=== PATIENT | male | born 1960 | race Caucasian/White ===

== ENCOUNTER 2018-10-02 13:11 | Emergency (ER) | payer SELFPAY ==
[2018-10-02 13:17] VITALS: BMI 33.7
[2018-10-02] MEDS ORDERED: morphine CARPU-JECT 2 MG/1 ML DISP.SYRIN IVPUSH ONE (13:49)
[2018-10-02] MEDS ORDERED: MORPHINE SULFATE 2 MG/ML VIAL ONE (14:31)
[2018-10-02 14:45] LABS: BASO % 0.5 % (0-2.0); EOS % 0.4 % (0-4.5); HEMATOCRIT 44.8 % (35.4-49); HEMOGLOBIN 15.8 GM/dL (11.7-16.9); LYMPH % 8.2 % (8-40); MCH 33.2 pg (25.7-33.7); MCHC 35.2 g/dl (32.0-35.9); MEAN CELL VOLUME 94.2 fl (80-96); MEAN PLT VOLUME 8.7 fl (7.5-11.1); MONO % 5.3 % (3.8-10.2); NEUT % 85.6 % (42.8-82.8); PLATELET COUNT 167 K/MM3 (134-434); RBC 4.75 M/mm3 (4.00-5.60); WHITE BLOOD COUNT 9.3 K/mm3 (4.0-10.0)
[2018-10-02 15:57] LABS: ALBUMIN 4.1 g/dl (3.4-5.0); ALK PHOS 91 U/L (45-117); ANION GAP 5 MMOL/L (8-16); BILIRUBIN,TOTAL 0.8 mg/dL (0.2-1); BLOOD UREA NITROGEN 10 mg/dL (7-18); CALCIUM 8.6 mg/dL (8.5-10.1); CHLORIDE 99 mmol/L (98-107); CO2 30 mmol/L (21-32); CREATININE 0.8 mg/dL (0.55-1.3); GLUCOSE,RANDOM 116 mg/dL (74-106); POTASSIUM 3.9 mmol/L (3.5-5.1); SGOT/AST 17 U/L (15-37); SGPT/ALT 26 U/L (13-61); SODIUM 133 mmol/L (136-145); TOT PROT 8.4 g/dl (6.4-8.2)
[2018-10-02] MEDS ORDERED: SODIUM CHLORIDE 1,000 ML IV STA (16:18)
[2018-10-02 17:53] VITALS: BP 156/80; PULSE 98; TEMP 98.1
--- NOTE | 2018-10-02 18:08 | PDOC ---
History of Present Illness - General Chief Complaint: Pain Stated Complaint: ABD PAIN Time Seen by Provider: 10/02/18 13:40 History Source: Patient Exam Limitations: No Limitations - History of Present Illness Travel History: No Initial Comments: 10/02/18 18:19 58-year-old male presents to ED with complaints of umbilical pain at his hernia site worsening over the past 3 weeks. 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 Patient denies change in bowel pattern, fever, nausea, or radiation of pain. Patient denies history of abdominal surgery Timing/Duration: reports: getting worse Quality: reports: moderate, burning Activities at Onset: reports: none Aggravating Factors: improves with: Movement Alleviating Factors: improves with: Rest Past History - Travel Traveled outside of the country in the last 30 days: No Close contact w/someone who was outside of country & ill: No - Past Medical History Allergies/Adverse Reactions: Allergies Allergy/AdvReac Type Severity Reaction Status Date / Time No Known Allergies Allergy Verified 10/02/18 13:17 Home Medications: Ambulatory Orders Oxycodone HCl/Acetaminophen [Percocet 5-325 mg Tablet] 1 - 2 tab PO Q6H PRN #12 tab MDD 4 10/02/18 COPD: No - Suicide/Smoking/Psychosocial Hx Smoking History: Never smoked Substance Use Type: Alcohol Patient Lives Alone: No Lives with/in: spouse/SO Review of Systems - Review of Systems Able to Perform ROS?: No Constitutional: No: Symptoms Reported HEENTM: No: Symptoms Reported Respiratory: No: Symptoms reported Cardiac (ROS): No: Symptoms Reported ABD/GI: Yes: Other : No: Symptoms Reported Musculoskeletal: No: Symptoms Reported Integumentary: Yes: Lumps (umbilical) Neurological: No: Symptoms reported Endocrine: No: Symptoms Reported *Physical Exam - Vital Signs Last Vital Signs Temp Pulse Resp BP Pulse Ox 98.1 F 98 H 20 156/80 95 10/02/18 17:52 10/02/18 17:52 10/02/18 17:52 10/02/18 17:52 10/02/18 17:52 - Physical Exam General Appearance: Yes: Nourished, Appropriately Dressed. No: Apparent Distress HEENT: negative: Pale Conjunctivae Neck: positive: Normal Thyroid, Supple Respiratory/Chest: positive: Lungs Clear, Normal Breath Sounds. negative: Respiratory Distress, Accessory Muscle Use Cardiovascular: positive: Regular Rhythm, Tachycardia (100). negative: Murmur Gastrointestinal/Abdominal: positive: Normal Bowel Sounds, Soft, Hernia (4 cm nonreducible umbilical hernia. Area slightly hyper pigmented. Surrounding skin intact. No increased warmth to the area). negative: Distended Musculoskeletal: negative: CVA Tenderness Extremity: positive: Normal Capillary Refill Integumentary: positive: Warm, Moist Neurologic: positive: Motor Strength 5/5 (ambulatory) Moderate Sedation - Procedure Monitoring Vital Signs: Procedure Monitoring Vital Signs Temperature 98.1 F 10/02/18 17:52 Pulse Rate 98 H 10/02/18 17:52 Respiratory Rate 20 10/02/18 17:52 Blood Pressure 156/80 10/02/18 17:52 O2 Sat by Pulse Oximetry (%) 95 10/02/18 17:52 ED Treatment Course - LABORATORY CBC & Chemistry Diagram: 10/02/18 14:34 10/02/18 15:19 - ADDITIONAL ORDERS Additional order review: Laboratory Results 10/02/18 10/02/18 15:19 14:34 Sodium 133 L Cancelled Potassium 3.9 Cancelled Chloride 99 Cancelled Carbon Dioxide 30 Cancelled Anion Gap 5 L Cancelled BUN 10 Cancelled Creatinine 0.8 Cancelled Creat Clearance w eGFR > 60 Cancelled Random Glucose 116 H Cancelled Calcium 8.6 Cancelled Total Bilirubin 0.8 Cancelled AST 17 Cancelled ALT 26 Cancelled Alkaline Phosphatase 91 Cancelled Total Protein 8.4 H Cancelled Albumin 4.1 Cancelled 10/02/18 14:34 RBC 4.75 MCV 94.2 MCHC 35.2 RDW 13.0 MPV 8.7 Neutrophils % 85.6 H Lymphocytes % 8.2 Monocytes % 5.3 Eosinophils % 0.4 Basophils % 0.5 - RADIOLOGY Radiology Studies Ordered: Category Date Time Status ABDOMEN & PELVIS CT WITH CONTR [CT] Stat CT Scan 10/02/18 13:48 Taken - Medications Given in the ED: ED Medications Discontinued Medications Generic Name Dose Route Start Last Admin Trade Name Freq PRN Reason Stop Dose Admin Sodium Chloride 1,000 mls @ 1,000 mls/hr 10/02/18 16:18 02/23/19 17:47 Normal Saline - IV 10/02/18 17:17 1,000 mls/hr ASDIR STA Administration Morphine Sulfate 2 mg 10/02/18 13:49 10/02/18 13:30 Morphine Injection - IVPUSH 10/02/18 13:50 2 mg ONCE ONE Administration Medical Decision Making - Medical Decision Making 10/02/18 14:32 Chief complaint: Umbilical hernia discomfort worsening over the past few months. Patient has had no follow-up. 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 Patient with non-reducible umbilical hernia after gentle pressure while laying supine on stretcher. Plan: Morphine IV reattempt to reduce, CBC, comp and abdominal CT with contrast to rule out incarceration or obstruction 10/02/18 15:34 Unable to reduce hernia after given morphine. Patient pending CT. 10/02/18 17:34 Laboratory Tests 10/02/18 10/02/18 14:34 15:19 WBC 9.3 Hgb 15.8 Hct 44.8 MCV 94.2 Neutrophils % 85.6 H Sodium 133 L Random Glucose [address] shows no incarceration of umbilical hernia. Patient will be given a 6 inch an elastic bandage along with gauze to apply pressure to umbilical area. Patient also given a few tablets of Percocet with a surgical referral. *DC/Admit/Observation/Transfer Diagnosis at time of Disposition: Umbilical hernia - Discharge Dispostion Disposition: HOME Condition at time of disposition: Improved - Prescriptions Prescriptions: Oxycodone HCl/Acetaminophen [Percocet 5-325 mg Tablet] 1 - 2 tab PO Q6H PRN #12 tab MDD 4 PRN Reason: Pain - Referrals Referrals: Romulo Arzate MD [Staff Physician] - - Patient Instructions Printed Discharge Instructions: Abdominal Hernia Additional Instructions: Use binder to stomach during the day and remove at night. Please call the surgeon as discussed. Please take medication as needed for discomfort. Please eat a well-balanced diet throughout the day. Print Language: PARAGUAYAN - Post Discharge Activity
== END 2018-10-02 18:36 | disposition home or self-care (01) ==
LOC: JER 13:11
PROC: 3E0337Z Introduction of Electrolytic and Water Balance Substance into Peripheral Vein, Percutaneous Approach (ICD-10-PCS; principal; 2018-10-02)
PROC: 3E033NZ Introduction of Analgesics, Hypnotics, Sedatives into Peripheral Vein, Percutaneous Approach (ICD-10-PCS; 2018-10-02)
DX: K42.9 Umbilical hernia without obstruction or gangrene (principal)
CPT/HCPCS: 36415; 74177-TC; 80053; 85025; 99283-25; J7030

== ENCOUNTER 2018-10-05 13:41 | Emergency (ER) | payer SELFPAY ==
[2018-10-05 13:57] VITALS: BP 164/86; PULSE 58; TEMP 98; BMI 29.2
--- NOTE | 2018-10-05 14:59 | PDOC ---
Rapid Medical Evaluation Chief Complaint: Pain, Acute Medical Evaluation: Allergies Allergy/AdvReac Type Severity Reaction Status Date / Time No Known Allergies Allergy Verified 10/02/18 13:17 Vital Signs Temp Pulse Resp BP Pulse Ox 98.0 F 58 L 18 164/86 98 10/05/18 13:50 10/05/18 13:50 10/05/18 13:50 10/05/18 13:50 10/05/18 13:50 I have performed a brief in-person evaluation of this patient. The patient presents with a chief complaint of: Abdominal pain x 3 days; denies fever, sob, cp, n/v/d, constipation Pertinent physical exam findings: +Umbilicial hernia noted (able to reduce in triage) I have ordered the following: Labs The patient will proceed to the ED for further evaluation. 10/05/18 14:53 Discharge Disposition - Discharge Dispostion Condition at time of disposition: Stable - Referrals - Patient Instructions - Post Discharge Activity
[2018-10-05 15:53] LABS: BASO % 0.6 % (0-2.0); EOS % 2.6 % (0-4.5); HEMATOCRIT 44.1 % (35.4-49); HEMOGLOBIN 15.6 GM/dL (11.7-16.9); LYMPH % 44.7 % (8-40); MCH 33.5 pg (25.7-33.7); MCHC 35.3 g/dl (32.0-35.9); MEAN CELL VOLUME 95.1 fl (80-96); NEUT % 40.1 % (42.8-82.8); PLATELET COUNT 132 K/MM3 (134-434); RBC 4.64 M/mm3 (4.00-5.60); WHITE BLOOD COUNT 3.4 K/mm3 (4.0-10.0)
[2018-10-05 16:14] LABS: INR 0.93 (0.83-1.09)
[2018-10-05] MEDS ORDERED: morphine CARPU-JECT 2 MG/1 ML DISP.SYRIN IVPUSH ONE (16:15)
[2018-10-05 16:16] LABS: ACTIVATED PTT 33.8 SECONDS (25.2-36.5)
[2018-10-05 16:25] LABS: ALK PHOS 87 U/L (45-117); ANION GAP 7 MMOL/L (8-16); BILIRUBIN,TOTAL 0.5 mg/dL (0.2-1); BLOOD UREA NITROGEN 13 mg/dL (7-18); CALCIUM 8.7 mg/dL (8.5-10.1); CHLORIDE 99 mmol/L (98-107); CO2 32 mmol/L (21-32); CREATININE 0.8 mg/dL (0.55-1.3); GLUCOSE,RANDOM 115 mg/dL (74-106); POTASSIUM 3.8 mmol/L (3.5-5.1); SGOT/AST 46 U/L (15-37); SGPT/ALT 34 U/L (13-61); SODIUM 137 mmol/L (136-145); TOT PROT 8.4 g/dl (6.4-8.2)
[2018-10-05] MEDS ORDERED: morphine SULFATE 4 MG/ML VIAL ONE (17:10)
--- NOTE | 2018-10-05 17:43 | PDOC ---
History of Present Illness - General Chief Complaint: Pain, Acute Stated Complaint: ABD PAIN Time Seen by Provider: 10/05/18 14:53 History Source: Patient Exam Limitations: No Limitations - History of Present Illness Travel History: No Initial Comments: 10/05/18 17:45 58-year-old male presents with continual umbilical pain which he feels has gotten larger but is relieved with the Percocet he was prescribed with the other day. Patient denies nausea, fever, chills change in bowel pattern, radiation of pain, or urinary complaints. Patient states was told he had a hernia on CAT scan that was done here in the ER and was given a referral to a surgeon. Timing/Duration: reports: intermittent Quality: reports: mild, moderate, burning Abdominal Pain Onset Location: reports: periumbilical Pain Radiation: reports: no radiation Activities at Onset: reports: none Aggravating Factors: improves with: Movement Alleviating Factors: improves with: Rest Past History - Travel Traveled outside of the country in the last 30 days: No Close contact w/someone who was outside of country & ill: No - Past Medical History Allergies/Adverse Reactions: Allergies Allergy/AdvReac Type Severity Reaction Status Date / Time No Known Allergies Allergy Verified 10/05/18 18:48 Home Medications: Ambulatory Orders Oxycodone HCl/Acetaminophen [Percocet 5-325 mg Tablet] 1 - 2 tab PO Q6H PRN #12 tab MDD 4 10/02/18 COPD: No Dialysis: No Liver Disease: No - Surgical History Appendectomy: No Neurologic Surgery: No - Immunization History Immunization Up to Date: No - Suicide/Smoking/Psychosocial Hx Smoking History: Never smoked Have you smoked in the past 12 months: No Information on smoking cessation initiated: No Hx Alcohol Use: No Drug/Substance Use Hx: No Substance Use Type: Alcohol Patient Lives Alone: No Lives with/in: spouse/SO Review of Systems - Review of Systems Able to Perform ROS?: Yes Constitutional: No: Symptoms Reported HEENTM: No: Symptoms Reported Respiratory: No: Symptoms reported Cardiac (ROS): No: Symptoms Reported ABD/GI: Yes: See HPI : No: Symptoms Reported Musculoskeletal: No: Symptoms Reported Integumentary: Yes: Lumps Neurological: No: Symptoms reported *Physical Exam - Vital Signs Last Vital Signs Temp Pulse Resp BP Pulse Ox 98.0 F 58 L 18 164/86 98 10/05/18 13:50 10/05/18 13:50 10/05/18 13:50 10/05/18 13:50 10/05/18 13:50 - Physical Exam General Appearance: Yes: Nourished, Appropriately Dressed. No: Apparent Distress Respiratory/Chest: positive: Lungs Clear, Normal Breath Sounds. negative: Respiratory Distress, Accessory Muscle Use Cardiovascular: positive: Regular Rhythm, Bradycardia. negative: Murmur Gastrointestinal/Abdominal: positive: Soft, Tenderness (at 2 x 2 centimeter umbilical hernia region. surrounding skin intact), Hernia (reducible umbilical hernia while in supine position after applying ice and morphine administration) Musculoskeletal: negative: CVA Tenderness Extremity: positive: Normal Capillary Refill. negative: Pedal Edema Integumentary: positive: Normal Color, Warm, Moist Neurologic: positive: Motor Strength 5/5 (ambulatory) Moderate Sedation - Procedure Monitoring Vital Signs: Procedure Monitoring Vital Signs Temperature 98.0 F 10/05/18 13:50 Pulse Rate 58 L 10/05/18 13:50 Respiratory Rate 18 10/05/18 13:50 Blood Pressure 164/86 10/05/18 13:50 O2 Sat by Pulse Oximetry (%) 98 10/05/18 13:50 ED Treatment Course - LABORATORY CBC & Chemistry Diagram: 10/05/18 15:17 10/05/18 15:17 - ADDITIONAL ORDERS Additional order review: Laboratory Results 10/05/18 10/05/18 10/05/18 15:17 15:17 15:17 PT with INR 11.00 INR 0.93 PTT (Actin FS) 33.8 Sodium 137 Potassium 3.8 Chloride 99 Carbon Dioxide 32 Anion Gap 7 L BUN 13 Creatinine 0.8 Creat Clearance w eGFR > 60 Random Glucose 115 H Lactic Acid Calcium 8.7 Total Bilirubin 0.5 AST 46 H ALT 34 Alkaline Phosphatase 87 Total Protein 8.4 H Albumin 4.0 Blood Type O POSITIVE Antibody Screen Negative 10/05/18 15:16 PT with INR INR PTT (Actin FS) Sodium Potassium Chloride Carbon Dioxide Anion Gap BUN Creatinine Creat Clearance w eGFR Random Glucose Lactic Acid 1.2 Calcium Total Bilirubin AST ALT Alkaline Phosphatase Total Protein Albumin Blood Type Antibody Screen 10/05/18 15:17 RBC 4.64 MCV 95.1 MCHC 35.3 RDW 13.0 MPV 9.0 Neutrophils % 40.1 L D Lymphocytes % 44.7 H D Monocytes % 12.0 H D Eosinophils % 2.6 D Basophils % 0.6 - Medications Given in the ED: ED Medications Discontinued Medications Generic Name Dose Route Start Last Admin Trade Name David PRN Reason Stop Dose Admin Morphine Sulfate 4 mg 10/05/18 16:15 10/05/18 17:13 Morphine Injection - IVPUSH 10/05/18 16:16 4 mg ONCE ONE Administration Medical Decision Making - Medical Decision Making 10/05/18 17:49 Periumbilical tenderness and stating it appears larger since last ED visit. Patient with reducible umbilical hernia but secondary to symptoms he decided to come to the ER today. Patient denies worsening symptoms and has been taking Percocet with good effect patient also states was using his elastic band but now cannot find it. Exam. Patient with reducible hernia after applying massage and receiving morphine. Plan: To be evaluated by surgery labs pending 10/05/18 18:[address] egan who recommends primary care referral for medical clearance and to be seen by a surgeon who will accept patient without insurance since this is not an emergent case and is at this time elective. 10/05/18 19:11 Laboratory Tests 10/05/18 10/05/18 10/05/18 15:16 15:17 15:17 WBC 3.4 L Hgb 15.6 Hct 44.1 Plt Count 132 L D MPV 9.0 Absolute Neuts (auto) 1.4 L Neutrophils % 40.1 L D Sodium 137 Potassium 3.8 Chloride 99 Carbon Dioxide 32 Anion Gap 7 L BUN 13 Creatinine 0.8 Random Glucose 115 H Lactic Acid 1.2 Calcium 8.7 Total Bilirubin 0.5 AST 46 H ALT 34 Alkaline Phosphatase 87 Total Protein 8.4 H Albumin 4.0 *DC/Admit/Observation/Transfer Diagnosis at time of Disposition: Umbilical hernia, Alcohol abuse - Discharge Dispostion Disposition: HOME Condition at time of disposition: Good - Referrals Referrals: Romulo Arzate MD [Staff Physician] - Winston English MD [Staff Physician] - - Patient Instructions Printed Discharge Instructions: Abdominal Hernia Additional Instructions: Please follow up with referred surgeon and primary care physician. Please apply pressure to area when coughing or getting up. You may also reduce the area by laying flat applying gentle pressure with massage. Print Language: UPPER SORBIAN - Post Discharge Activity
--- NOTE | 2018-10-05 18:48 | CONSULT ---
Consult Consult Specialty:: General Surgery Referred by:: Primitivo Fletcher Reason for Consultation:: umbilical hernia - incarcerated? - History of Present Illness Chief Complaint: umbilical pain and bulging History of Present Illness: 58yo M, daily drinker, with no PMH or PSH otherwise, presented for second time in 3 days with umbilical pain and bulging, now worse than 3 days ago. Hernia diagnosed last visit, CT done showing fat content only. Pt reports cough since Thursday, and that it is worse with coughing. Denies f/c, n/v, d/c, urinary symptoms, CP, SOB, LOPEZ/dizziness. No home meds except the percocet he was Rx Thursday. 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 Denies h/o tremors or blackouts. Surgery was asked to evaluate. No wbc, normal INR, LFTs, no ascites on CT or abnormal liver appearance. He is seen and examined in ER. H&P facilitated by Occitan translation with nursing and AUDIO ENGINEER staff. - History Source History Provided By: Patient Limitations to Obtaining History: Language Barrier (Occitan - facilitated by Tod Mantilla and Primitivo Fletcher) - Past Medical History Psych: Yes: Addictions (EtOH - 6-8 beers/day when not working) Musculoskeletal: Yes: Other (umbilical hernia) - Past Surgical History Past Surgical History: Yes: None - Alcohol/Substance Use Hx Alcohol Use: Yes (6-8 beers/day when not working) History of Substance Use: reports: None - Smoking History Smoking history: Never smoked Have you smoked in the past 12 months: No - Social History ADL: Independent Occupation: intermittent/cleaning supervisor construction Home Medications - Allergies Allergies/Adverse Reactions: Allergies Allergy/AdvReac Type Severity Reaction Status Date / Time No Known Allergies Allergy Verified 10/02/18 13:17 - Home Medications Home Medications: Ambulatory Orders Oxycodone HCl/Acetaminophen [Percocet 5-325 mg Tablet] 1 - 2 tab PO Q6H PRN #12 tab MDD 4 10/02/18 Family Disease History - Family Disease History Family History: Unremarkable (noncontributory) Review of Systems - Review of Systems Constitutional: denies: Chills, Fever Eyes: denies: Blurred Vision, Recent Change in Vision HENT: denies: Difficult Swallowing, Throat Pain Neck: denies: Swollen Glands, Tenderness Cardiovascular: denies: Chest Pain, Palpitations Respiratory: reports: Cough (since Thursday). denies: SOB Gastrointestinal: reports: Abdominal Pain (with hpi). denies: Constipation, Diarrhea, Nausea, Vomiting Genitourinary: denies: Burning, Dysuria Musculoskeletal: reports: Back Pain (related to working). denies: Joint Pain, Muscle Pain Integumentary: reports: Lump (at belly button (hpi)). denies: Change in Color, Rash Neurological: denies: Dizziness, Headache Physical Exam Vital Signs: Vital Signs Temperature 98.0 F 10/05/18 13:50 Pulse Rate 58 L 10/05/18 13:50 Respiratory Rate 18 10/05/18 13:50 Blood Pressure 164/86 10/05/18 13:50 O2 Sat by Pulse Oximetry (%) 98 10/05/18 13:50 Constitutional: Yes: Well Nourished, No Distress, Calm Eyes: Yes: Conjunctiva Clear, EOM Intact HENT: Yes: Atraumatic, Normocephalic Neck: Yes: Supple, Trachea Midline Cardiovascular: Yes: Regular Rate and Rhythm Respiratory: Yes: Regular, Cough (intermittent, does not seem productive), Wheezes (slight on left, more expiratory than inspiratory, does not clear completely with cough) Gastrointestinal: Yes: Normal Bowel Sounds, Soft, Hernia (umbilical, reducible with <1cm defect palpable once reduced), Tenderness (over hernia and referred from all other quadrants, mildly). No: Distention, Tenderness, Rebound ...Rectal Exam: Yes: Deferred Renal/: Yes: CVA Tenderness - Left (mild). No: CVA Tenderness - Right Musculoskeletal: Yes: Back Pain (mild - per pt, related to work). No: Joint Swelling Extremities: No: Cool, Cyanosis Edema: No Peripheral Pulses WNL: Yes Integumentary: No: Jaundice, Rash Neurological: Yes: Alert, Oriented. No: Tremors Psychiatric: Yes: Alert, Oriented Labs: CBC, BMP 10/05/18 15:17 10/05/18 15:17 CMP Sodium 137 mmol/L (136-145) 10/05/18 15:17 Potassium 3.8 mmol/L (3.5-5.1) 10/05/18 15:17 Chloride 99 mmol/L (98-107) 10/05/18 15:17 Carbon Dioxide 32 mmol/L (21-32) 10/05/18 15:17 Anion Gap 7 MMOL/L (8-16) L 10/05/18 15:17 BUN 13 mg/dL (7-18) 10/05/18 15:17 Creatinine 0.8 mg/dL (0.55-1.3) 10/05/18 15:17 Creat Clearance w eGFR > 60 (>60) 10/05/18 15:17 Random Glucose 115 mg/dL (74-106) H 10/05/18 15:17 Lactic Acid 1.2 mmol/L (0.4-2.0) 10/05/18 15:16 Calcium 8.7 mg/dL (8.5-10.1) 10/05/18 15:17 Total Bilirubin 0.5 mg/dL (0.2-1) 10/05/18 15:17 AST 46 U/L (15-37) H 10/05/18 15:17 ALT 34 U/L (13-61) 10/05/18 15:17 Alkaline Phosphatase 87 U/L (45-117) 10/05/18 15:17 Total Protein 8.4 g/dl (6.4-8.2) H 10/05/18 15:17 Albumin 4.0 g/dl (3.4-5.0) 10/05/18 15:17 INR, PTT INR 0.93 (0.83-1.09) 10/05/18 15:17 Imaging - Results Cat Scan: Report Reviewed, Image Reviewed (images from 10/02 reviewed - fat- containing umbilical hernia, ~1cm defect as measured, no fluid, no bowel content , no other acute findings) Problem List - Problems (1) Umbilical hernia without obstruction and without gangrene Assessment/Plan: Pt with reducible fat-containing umbilical hernia No incarceration, no bowel content, symptomatic but no urgent/emergent indication for repair Also with apparent URI with cough and wheezing for last few days Hernia prominence and pain likely related to increase in coughing Pt instructed on how to splint with coughing by holding the hernia site with fingers/hand for support Pt will need to resolve URI/coughing/wheezing prior to consideration of elective repair Discussed R/B/A of laparoscopic possible open repair with assistance of Tod Mantilla in Occ[place] Pt understands he would be out of work for at least 4-6 weeks after a repair procedure Pt also has no primary physician - ER to refer to PMD F/U with surgery for elective repair as long as hernia is reducible, goes down with lying flat, massage and/or relaxation - may be done electively Code(s): K42.9 - UMBILICAL HERNIA WITHOUT OBSTRUCTION OR GANGRENE (2) Umbilical pain Code(s): R10.33 - PERIUMBILICAL PAIN (3) Alcohol abuse Assessment/Plan: pt advised to reduce or quit EtOH consumption, especially prior to elective surgery also advised not to drink with narcotic pain medication Code(s): F10.10 - ALCOHOL ABUSE, UNCOMPLICATED (4) URI with cough and congestion Assessment/Plan: see above Code(s): J06.9 - ACUTE UPPER RESPIRATORY INFECTION, UNSPECIFIED (5) Expiratory wheezing on left side of chest Code(s): R06.2 - WHEEZING
== END 2018-10-05 19:31 | disposition home or self-care (01) ==
LOC: JER 13:41
PROC: 3E033NZ Introduction of Analgesics, Hypnotics, Sedatives into Peripheral Vein, Percutaneous Approach (ICD-10-PCS; principal; 2018-10-05)
DX: K42.9 Umbilical hernia without obstruction or gangrene (principal); J06.9 Acute upper respiratory infection, unspecified; F10.10 Alcohol abuse, uncomplicated
CPT/HCPCS: 36415; 80053; 83605; 85025; 85610; 85730; 86850; 86900; 86901; 99282-25; 99283-25